=== PATIENT | female | born 1970 | race Caucasian/White ===

== ENCOUNTER 2019-01-21 09:50 | Emergency (ER) | payer BC ==
[2019-01-21] MEDS ORDERED: ISOVUE-370 76%-LOCM 1 ML ONE (10:36)
[2019-01-21] MEDS ORDERED: Ondansetron PF 4 MG/2 ML Vial ONE ×2 (11:06→13:26)
[2019-01-21 11:35] LABS: BHCG - Serum Negative (NEGATIVE); Pregs Control Background? CLEAR/WHITE (CLR/WHITE); Pregs Control Bar Appear? YES (CONTROL BAR)
[2019-01-21 11:43] LABS: Hemoglobin 14.5 g/dL (12.0-16.0); Mean Corpuscular HGB CONC 33.5 g/dL (32.0-36.0); Mean Corpuscular Hemoglobin 30.4 pg (27.0-31.0); Mean Corpuscular Volume 90.6 fL (78.0-98.0); Mean Platelet Volume 10.5 fL (7.4-10.4); Platelet Count 176 thou/uL (130-400); RBC Distribution Width 11.8 % (11.5-14.5); Red Blood Cell (RBC) Count 4.78 mill/uL (4.20-5.40); White Blood Cell (WBC) Count 10.4 thou/uL (4.8-10.8)
[2019-01-21 12:00] LABS: Bilirubin Small (Negative); Blood, Urine Trace (Negative); Glucose, Urine (Dipstick) Negative (Negative); Leukocyte Negative (Negative); Nitrite Negative (Negative); Protein, Urine (Dipstick) Negative (Neg-Trace); Urobilinogen 0.2 mg/dL (Less than 2)
--- NOTE | 2019-01-21 12:00 | CT ---
CT BRAIN NONCONTRAST: DATE: 01/21/2019 HISTORY: 48-year-old female with headache. FINDINGS: There is no evidence of acute intra-axial or extra-axial hemorrhage. There is no midline shift or any other mass effect. There is no extra-axial fluid collection. There is no evidence of obstructive hydrocephalus. Calvarium is intact. IMPRESSION: No acute intracranial findings.
[2019-01-21 12:01] LABS: Clarity Clear (Clear)
[2019-01-21 12:05] LABS: Bacteria/HPF None Seen HPF (None Seen); RBC/HPF 0-3 HPF (0-3); Squamous Epithelial 0-3 HPF (0-3); WBC/HPF 0-3 HPF (0-3)
[2019-01-21 12:06] LABS: Band 10 % (5-11); Eosinophils 2 % (0-10); Lymphocytes 16 % (21-51); MDiff Complete? YES; Monocytes 7 % (0-10); Neutrophil 64 % (42-75); RBC Morphology Normal
--- NOTE | 2019-01-21 12:09 | CT ---
EXAM: CT ABDOMEN AND PELVIS HISTORY: Abdomen CT with contrast Pelvic CT with contrast COMPARISON: 11/25/2016 Procedure: Multiple contiguous axial images were obtained and a CT of the abdomen and pelvis with IV contrast. C oronal reformats were performed. FINDINGS: Lower Chest: within normal limits. Vessels: Normal caliber aorta Heart: Normal heart size. No significant pericardial fluid. Abdomen: Portal vein:Patent Gallbladder: No calcified gallstones. Normal caliber wall. Liver: within normal limits. Pancreas: within normal limits. Spleen: within normal limits. Adrenals: within normal limits. Kidneys: Symmetric enhancement. Bilaterally no obstructive uropathy. Peritoneum: There is fluid in the right paracolic gutter with stranding of the mesentery adjacent to the right hemicolon. Trace amount of fluid in the left paracolic gutter. No mesenteric free air or mass. Bowel: Limited evaluation due to lack of oral contrast. Gastric mucosa, duodenum and small bowel loop s are grossly unremarkable. Ileocecal junction is unremarkable. Normal caliber appendix. There is bowel wall thickening with pericolonic fat stranding involving the distal cecum, ascending colon. The re is evidence of diverticular disease. Diverticulitis is favored. No evidence of abscess or perforation. The remainder the colon is unremarkable. Additional scattered diverticula are noted. Mesentery and Retroperitoneum: No enlarged mesenteric or retroperitoneal lymph nodes. Abdominal Wall: within normal limits. Pelvis: Reproductive Organs: Surgically absent uterus Pelvis: Small amount of free fluid in the right hemipelvis with attenuation coefficient of 23 Hounsfi eld units. Bladder: within normal limits. Bones: within normal limits. IMPRESSION: 1. Right hemicolon diverticulitis without evidence of abscess or perforation. Consider colonoscopy af ter acute bout of inflammation resolved. 2. Normal caliber appendix. 3. Slightly complex free fluid in the pelvis which is presumed to be reactive.
[2019-01-21 12:20] LABS: Albumin 3.8 g/dL (3.5-5.0)
[2019-01-21 12:21] LABS: Calcium 8.6 mg/dL (7.8-10.44); Chloride 103 mmol/L (98-107); Potassium 4.1 mmol/L (3.5-5.1); Sodium 135 mmol/L (136-145)
[2019-01-21 12:22] LABS: Globulin 2.2 g/dL (2.4-3.5); Glucose 98 mg/dL (70-105)
[2019-01-21 12:23] LABS: Anion Gap 11 mmol/L (10-20); Carbon Dioxide 25 mmol/L (22-29)
[2019-01-21 12:24] LABS: Bilirubin, Total 0.6 mg/dL (0.2-1.2)
[2019-01-21 12:25] LABS: Alkaline Phosphatase 62 U/L (40-150); Calc. Creatinine Clearance 0 mL/min (70-130); Estimated GFR-MDRD 90
[2019-01-21 12:26] LABS: BUN (Urea Nitrogen) 10 mg/dL (7.0-18.7)
[2019-01-21 12:27] LABS: AST (SGOT) 11 U/L (5-34)
[2019-01-21 12:28] LABS: ALT (SGPT) 10 U/L (8-55)
[2019-01-21] MEDS ORDERED: Ketorolac Tromethamine 30 MG/ML VIAL ONE (13:26)
[2019-01-21] MEDS ORDERED: Acetaminophen 500 MG TAB ONE (13:26)
[2019-01-21] MEDS ORDERED: diphenhydrAMINE 50 MG/ML VIAL ONE (13:26)
[2019-01-21] MEDS ORDERED: Fentanyl 100 MCG/2 ML VIAL ONE (13:42)
[2019-01-21] MEDS ORDERED: metroNIDAZOLE 250 MG TAB ONE (13:55)
[2019-01-21] MEDS ORDERED: Ciprofloxacin 500 MG TAB ONE (13:55)
== END 2019-01-21 14:50 | disposition home or self-care (01) ==
LOC: ERS 09:50
DX: K57.32 Diverticulitis of large intestine without perforation or abscess without bleeding (principal); G43.909 Migraine, unspecified, not intractable, without status migrainosus; R11.0 Nausea; F17.210 Nicotine dependence, cigarettes, uncomplicated
CPT/HCPCS: 36415; 70450; 74177; 80053; 81003; 83605; 84703; 85025; 96361; 96374; 96375; 96376; J1200; J1885; J2405; J3010; Q9966

== ENCOUNTER 2019-01-23 23:47 | Emergency (ER) | payer BC ==
[2019-01-24 00:42] LABS: #Basophils 0.1 thou/uL (0.0-0.2); #Eosinphils 0.2 thou/uL (0.0-0.7); #Lymphocytes 2.4 thou/uL (1.20-3.40); #Monocytes 0.6 thou/uL (0.11-0.59); #Neutrophils 3.7 thou/uL (1.40-6.50); %Basophils 0.9 % (0.0-1.0); %Eosinophils 2.4 % (0.0-10.0); %Lymphocytes 34.3 % (21.0-51.0); %Monocytes 8.1 % (0.0-10.0); %Neutrophils 54.2 % (42.0-75.0); Hemoglobin 11.4 g/dL (12.0-16.0); Mean Corpuscular HGB CONC 33.4 g/dL (32.0-36.0); Mean Corpuscular Hemoglobin 30.4 pg (27.0-31.0); Mean Corpuscular Volume 91.2 fL (78.0-98.0); Platelet Count 164 thou/uL (130-400); RBC Distribution Width 11.9 % (11.5-14.5); Red Blood Cell (RBC) Count 3.76 mill/uL (4.20-5.40); White Blood Cell (WBC) Count 6.9 thou/uL (4.8-10.8)
[2019-01-24 01:06] LABS: ALT (SGPT) 13 U/L (8-55); AST (SGOT) 22 U/L (5-34); Albumin 3.7 g/dL (3.5-5.0); Alkaline Phosphatase 61 U/L (40-150); Anion Gap 9 mmol/L (10-20); BUN (Urea Nitrogen) 9 mg/dL (7.0-18.7); Bilirubin, Total 0.3 mg/dL (0.2-1.2); Calc. Creatinine Clearance 0 mL/min (70-130); Calcium 9.1 mg/dL (7.8-10.44); Carbon Dioxide 28 mmol/L (22-29); Chloride 104 mmol/L (98-107); Estimated GFR-MDRD 89; Globulin 2.1 g/dL (2.4-3.5); Glucose 101 mg/dL (70-105); Lipase 25 U/L (8-78); Potassium 3.7 mmol/L (3.5-5.1); Protein, Total 5.8 g/dL (6.0-8.3); Sodium 137 mmol/L (136-145)
== END 2019-01-24 02:20 | disposition home or self-care (01) ==
LOC: ERS 23:47
DX: R10.9 Unspecified abdominal pain (principal); G43.909 Migraine, unspecified, not intractable, without status migrainosus; F17.210 Nicotine dependence, cigarettes, uncomplicated; Z79.899 Other long term (current) drug therapy
CPT/HCPCS: 36415; 80053; 83690; 85025; 99284

== ENCOUNTER 2019-03-11 11:55 | Day surgery (SDC) | payer BC ==
[2019-03-10 16:11] VITALS: BMI 21.4
[2019-03-11] MEDS ORDERED: Ketorolac Tromethamine 30 MG/ML VIAL ONE (12:53)
[2019-03-11] MEDS ORDERED: Lidocaine 1% PF 5 ML VIAL ONE (12:53)
[2019-03-11] MEDS ORDERED: Ondansetron PF 4 MG/2 ML Vial ONE (12:53)
[2019-03-11] MEDS ORDERED: PROPOFOL 200 MG/20 ML VIAL ONE (12:53)
[2019-03-11] MEDS ORDERED: Dexamethasone 20 MG/5 ML VIAL ONE (12:53)
[2019-03-11] MEDS ORDERED: Fentanyl 100 MCG/2 ML VIAL ONE (13:39)
[2019-03-11] MEDS ORDERED: Bupivacaine PF 0.5% 30 ML VIAL ONE (13:47)
--- NOTE | 2019-03-12 09:07 | OP ---
DATE OF PROCEDURE: 03/11/2019 PREOPERATIVE DIAGNOSIS: Left axillary abscess. PROCEDURE PERFORMED: I and D, debridement of left axilla. INDICATIONS: A 48-year-old female, who had a several-day history of enlarging painful soft tissue swelling of the left axilla. It started draining last night. FINDINGS: 6 x 3 cm multilocular abscess/phlegmon, left axilla. DESCRIPTION OF PROCEDURE: After informed consent was obtained, the patient was taken to the operating room, given general endotracheal anesthesia, placed in the supine position. Her axilla was prepped and draped in usual fashion. Local anesthesia infiltrated subcutaneously and deep. An elliptical incision was performed. It was unroofed. There were multiple loculations, which were broken up utilizing digital dissection and hemostats. Cultures were obtained. The area was thoroughly irrigated with saline. Hemostasis was achieved with electrocautery. Packed open with sterile gauze. Sterile bandage applied. The patient tolerated the procedure well, transferred to Recovery in good condition. Sponge and needle count verified correct x2. Job ID: [id number]
== END 2019-03-11 16:48 | disposition home or self-care (01) ==
LOC: SDC 11:55
PROVIDERS: ATTEND Surgery
PROC: 0J980ZZ Drainage of Abdomen Subcutaneous Tissue and Fascia, Open Approach (ICD-10-PCS; principal; 2019-03-11)
DX: L02.412 Cutaneous abscess of left axilla (principal); F17.210 Nicotine dependence, cigarettes, uncomplicated; Z88.5 Allergy status to narcotic agent
CPT/HCPCS: 87070; 87077; 87186; 87205; J0690; J1100; J1885; J2001; J2405; J2704; J3010; S0020

== ENCOUNTER 2019-04-10 14:20 | Outpatient (CLI) | payer BC ==
--- NOTE | 2019-04-10 15:37 | CT ---
CT angiogram abdomen and pelvis with and without IV contrast and 3-D reconstructions 04/10/2019 CLINICAL INFORMATION: Abdominal pain. Abnormal CT examination. COMPARISON: CT abdomen and pelvis on 01/21/2019 Technique: Multiple contiguous axial CT images are obtained through the abdomen and pelvis with IV contrast. Cor onal reformatted images are provided. FINDINGS: Lower Chest: Minimal bibasilar atelectasis. Vessels: The abdominal aorta is normal in caliber without evidence of an aortic dissection. The neri c, superior mesenteric, and inferior mesenteric arteries are patent. Single patent bilateral renal arteries are seen. The iliac arteries are patent bilaterally. The visualized femoral arteries are als o patent. Abdomen: Portal vein:Not well opacified but where seen does appear patent. Gallbladder: Within normal limits for CT imaging. Liver: Normal appearance for arterial phase of imaging. Spleen: Normal appearance for arterial phase of imaging. Pancreas: within normal limits. Adrenals: within normal limits. Kidneys: within normal limits. Bowel: There is scattered colonic diverticulosis. Inflammatory changes adjacent to the ascending colo n noted on the prior study have resolved. Small amount of free fluid in the right paracolic gutter has also resolved. Loops of small bowel are normal in caliber. Appendix: The appendix is visualized and normal in caliber. Peritoneum: No ascites or free air; no fluid collection. Mesentery and Retroperitoneum: No enlarged mesenteric or retroperitoneal lymph nodes. Abdominal Wall: within normal limits. Pelvis: Reproductive Organs: Evidence of hysterectomy. Pelvis within normal limits. Bladder: Partially distended and normal in appearance. Bones: within normal limits. IMPRESSION: 1. No acute findings are seen in the abdomen or pelvis. 2. Abdominal aorta as well as mesenteric and bilateral renal arteries are patent. 3. Colonic diverticulosis. There has been resolution of the colonic wall thickening and pericolonic i nflammatory changes and fluid seen involving the ascending colon. 4. Small amount of complex fluid in the right hemipelvis on the prior exam has resolved. 5. Hysterectomy.
[2019-04-10] MEDS ORDERED: ISOVUE-370 76%-LOCM 1 ML ONE (18:18)
== END 2019-04-10 14:21 | disposition home or self-care (01) ==
LOC: BICCT 14:20
PROVIDERS: ATTEND Physician Assistant Medical
DX: R10.9 Unspecified abdominal pain (principal); R93.3 Abnormal findings on diagnostic imaging of other parts of digestive tract; D12.6 Benign neoplasm of colon, unspecified; I71.4 Abdominal aortic aneurysm, without rupture; K57.30 Diverticulosis of large intestine without perforation or abscess without bleeding
CPT/HCPCS: 74174; Q9966

== ENCOUNTER 2021-08-17 11:11 | Outpatient (CLI) | payer BC | END 2021-08-17 11:12 | disposition home or self-care (01) | LOC: BICMAMMO 11:11 | PROVIDERS: ATTEND Registered Nurse | DX: Z12.31 Encounter for screening mammogram for malignant neoplasm of breast (principal) | CPT/HCPCS: 77063; 77067 ==

== ENCOUNTER 2024-05-13 09:35 | Outpatient (CLI) | payer BC ==
[2024-05-13] MEDS ORDERED: Magnevist 469MG/ML 20 ML VIAL ONE (10:36)
== END 2024-05-13 09:36 | disposition home or self-care (01) ==
LOC: CT 09:35
PROVIDERS: ATTEND Physician Assistant Medical
DX: R10.31 Right lower quadrant pain (principal); R00.1 Bradycardia, unspecified; R93.2 Abnormal findings on diagnostic imaging of liver and biliary tract; R11.0 Nausea; R19.7 Diarrhea, unspecified; K86.2 Cyst of pancreas; Z86.0100 Personal history of colon polyps, unspecified
CPT/HCPCS: 74183